=== PATIENT | female | born 1960 | race African-American/Black ===

== ENCOUNTER 2018-04-18 09:07 | Emergency (ER) | payer MEDICAID ==
[~2018-04-18] VITALS: Ht 172.7 cm; Wt 112.5 kg
[2018-04-18 09:51] LABS: MICROSCOPIC AUTO
--- NOTE | 2018-04-18 10:26 | NUR ---
pt to ed for abd pain and nausea x 2 weeks. no v/d. connected to monitors. vss. no needs at this time. call light within reach.
[2018-04-18] MEDS ORDERED: ZOLP5TAB6 PO (10:32)
[2018-04-18] MEDS ORDERED: POTA20TA6 PO (10:32)
[2018-04-18] MEDS ORDERED: NABU750T PO (10:32)
[2018-04-18] MEDS ORDERED: HYDR25TA6 PO (10:32)
[2018-04-18] MEDS ORDERED: CARV12.52 PO (10:32)
[2018-04-18 10:38] LABS: BASOPHILS # (AUTO) 0.02 x10^3/uL (0-0.1); BASOPHILS % (AUTO) 0 % (0-1); EOSINOPHILS # (AUTO) 0.04 x10^3/uL (0-0.4); EOSINOPHILS % (AUTO) 1 % (1-7); LYMPHOCYTES # (AUTO) 1.21 x10^3/uL (1-3.4); LYMPHOCYTES % (AUTO) 13 % (22-44); MD NO; MEAN CORPUSCULAR HGB CONC 33.5 g/dL (32.4-35.8); MEAN CORPUSCULAR VOLUME 92.6 fL (80-100); MEAN PLATELET VOLUME 11.5 fL (7.4-10.4); MONOCYTES # (AUTO) 0.45 x10^3/uL (0.2-0.8); MONOCYTES % (AUTO) 5 % (2-9); NEUTROPHILS # (AUTO) 7.46 x10^3/uL (1.8-6.8); NEUTROPHILS % (AUTO) 81 % (42-75); PLATELET COUNT 259 x10^3/uL (130-400); RED BLOOD COUNT 5.08 x10^6/uL (3.82-5.3); RED CELL DISTRIBUTION WIDTH 13.9 % (9.6-15.2)
[2018-04-18 10:50] LABS: ALANINE AMINOTRANSFERASE 23 U/L (12-78); ALBUMIN 3.8 g/dL (3.4-5.0); ANION GAP 6 mmol/L (5-15); CALCIUM 9.3 mg/dL (8.5-10.1); CHLORIDE 106 mmol/L (98-107); CREATININE 0.92 mg/dL (0.55-1.02)
[2018-04-18 10:52] LABS: ALKALINE PHOSPHATASE 106 U/L (45-117); BILIRUBIN,TOTAL 0.8 mg/dL (0.2-1.0); TOTAL PROTEIN 7.9 g/dL (6.4-8.2)
[2018-04-18 12:19] VITALS: BP 151/89
--- NOTE | 2018-04-18 12:20 | NUR ---
pt resting in bed. md to bedside to update on poc. vss. no needs at this time. call light within reach.
== END 2018-04-18 12:40 | disposition home or self-care (01) ==
LOC: ED 10:48
DX: R10.11 Right upper quadrant pain (principal)
CPT/HCPCS: 36415; 74176; 80053; 81001; 83690; 85025; 99284